=== PATIENT | female | born 1980 | race Caucasian/White ===

== ENCOUNTER 2017-02-26 21:13 | Emergency (ER) | payer MEDICAID ==
[~2017-02-26] VITALS: Ht 167.6 cm; Wt 70.2 kg
[~2017-02-26 21:13] MED LIST: AMOX500T PO
[2017-02-26 21:20] VITALS: BP 137/87; PULSE 96; RESP 18; TEMP 97.6; O2SAT 98
--- NOTE | 2017-02-26 21:34 | PD ---
HPI Chief Complaint: Oral / Dental Pain or Problem Time Seen by Provider: 21:33 Travel History International Travel<30 days: No Contact w/Intl Traveler<30days: No Traveled to known affect area: No History of Present Illness HPI 36-year-old female presents the emergency department visit. Right upper and lower dental pain and swelling for the past 3 days. Teeth involvement of the #3 and #30 tooth with localized swelling and tenderness of the gumline. Patient has pain with hot and cold and is unable to eat secondary to her dental pain. She denies sore throat or difficulty swallowing. She has no history of fever or chills. Pain is a 10 over 10. Patient is 37 weeks . She has no known drug allergies. [facility] Past Medical History Diminished Hearing: No Immunizations Current: Yes ?: : 12 Para: 4 Miscarriage: 2 : 8 Dilation and Curettage (D&C): Yes (D&C WITH ABORTIONS ) Past Surgical History Gynecologic Surgery: Yes (D&C) Other Surgery: Yes Social History Alcohol Use: No (quit) Tobacco Use: Yes (1-1.5 PPD) Substance Use: Yes (MARIJUANA) Allergies-Medications (Allergen,Severity, Reaction): Coded Allergies: No Known Allergies (Verified , 02/26/17) Reported Meds & Prescriptions Reported Meds & Active Scripts Active Magic Mouthwash Adult Liq (Multi-Ingredient Mouthwash/Gargle) 120 Ml Susp 10 Ml SWISH-SPIT ACHS Each 5 mL contains: Nystatin 200,000 units, Diphenhydramine 4.25 mg, Viscous Lidocaine 10 mg, Fonseca syrup 0.8 mL Amoxicillin 875 Mg Tab 875 Mg PO BID Acetaminophen Extra Strength (Acetaminophen) 500 Mg Cap 1,000 Mg PO Q6H PRN Review of Systems General / Constitutional: Positive: Chills, No: Fever Eyes: No: Visual changes HENT: Positive: Dental Difficulties, No: Headaches, Sore Throat, Rhinitis, Rhinorrhea, Congestion, Nosebleed, Neck Stiffness, Neck Pain, Ear Discharge, Earache Cardiovascular: No: Chest Pain or Discomfort Respiratory: No: Shortness of Breath Gastrointestinal: No: Abdominal Pain Genitourinary: No: Dysuria Musculoskeletal: No: Pain Skin: No Rash Neurologic: No: Weakness Psychiatric: No: Depression Endocrine: No: Polydipsia Hematologic/Lymphatic: No: Easy Bruising Physical Exam Narrative GENERAL: Patient is in moderate distress. SKIN: Warm and dry. Normal color. Normal turgor HEAD: Atraumatic. Normocephalic. Mild swelling to the right upper and lower jaw with tenderness. No erythema. EYES: Pupils equal and round. No scleral icterus. No injection or drainage. ENT: No nasal bleeding or discharge. Mucous membranes pink and moist. Poor dental condition. Obvious caries with tenderness consistent with patient's complaint. No significant drainable abscess. No signs Wilbert angina. NECK: Trachea midline. Supple nontender without significant lymphadenopathy. CARDIOVASCULAR: Regular rate and rhythm. RESPIRATORY: No accessory muscle use. Clear to auscultation. Breath sounds equal bilaterally. GASTROINTESTINAL: Abdomen soft, non-tender, nondistended. Hepatic and splenic margins not palpable. Gravid uterus noted. MUSCULOSKELETAL: Extremities without clubbing, cyanosis, or edema. No obvious deformities. NEUROLOGICAL: Awake and alert. No obvious cranial nerve deficits. Motor grossly within normal limits. Five out of 5 muscle strength in the arms and legs. Normal speech. PSYCHIATRIC: Appropriate mood and affect; insight and judgment normal. Data Data Last Documented VS Vital Signs Date Time Temp Pulse Resp B/P Pulse Ox O2 Delivery O2 Flow Rate FiO2 02/26/17 21:20 97.6 96 18 137/87 98 Orders Acetamin-Hydrocod 325-5 Mg ([place] 5-325 (02/26/17 21:45) Jux-Iizm-Dp-Mg-Simeth Liq (Magic Mouthwa (02/26/17 21:45) Amoxicillin (Trimox) (02/26/17 21:45) [facility] Medical Decision Making Medical Screen Exam Complete: Yes Emergency Medical Condition: Yes Differential Diagnosis Dental caries. Dental pain. . Narrative Course Patient is medically stable at time of exam. Patient is given 875 mg of amoxicillin by mouth now as well as Lortab 5/325 by mouth and Magic mouthwash 10 mL swish and spit. Patient be discharged home with amoxicillin 875 twice a day 10 days. Patient is given a prescription for Magic mouthwash as directed. Diagnosis Primary Impression: Dental abscess Referrals: Dentist Patient Instructions: Dental Abscess (ED), General Instructions Additional Instructions: Patient be discharged home with amoxicillin 875 twice a day 10 days. Patient is given a prescription for Magic mouthwash as directed. Med/Other Pt SpecificInfo: Prescription(s) given Scripts Vaxzneoj-Dyimytklqsjioxv-Pqofktpve Liq (Magic Mouthwash Adult Liq)120 Ml Susp10 Ml SWISH-SPIT ACHS #120 ML Ref 1 Each 5 mL contains: Nystatin 200,000 units, Diphenhydramine 4.25 mg, Viscous Lidocaine 10 mg, Fonseca syrup 0.8 mL Prov:Carlos Choe MD 02/26/17 Amoxicillin 875 Mg Unr548 Mg PO BID #20 TAB Prov:Carlos Choe MD 02/26/17 Acetaminophen (Acetaminophen Extra Strength)500 Mg Cap1,000 Mg PO Q6H PRN (PAIN SCALE 4 TO 10) #60 CAP Ref 1 Prov:Carlos Choe MD 02/26/17 Disposition: 01 DISCHARGE HOME Condition: Stable Wenceslao Leiva Feb 26, 2017 21:34
[2017-02-26] MEDS ORDERED: EXTR500C PO (21:41)
[2017-02-26] MEDS ORDERED: AMOX875T PO (21:41)
[2017-02-26] MEDS ORDERED: MAGICADU2 SWISH-SPIT (21:41)
[2017-02-26] MEDS ORDERED: DIPHENHY/LIDO/MAG/ALUM MOUTHWASH (Adult/Peds) 60 ML BTL SWISH-SPIT ONE (21:45)
[2017-02-26] MEDS ORDERED: AMOXICILLIN 875 MG TAB PO ONE (21:45)
[2017-02-26] MEDS ORDERED: ACETAMINOPHEN/HYDROcodone 325 MG/5 MG TAB PO ONE (21:45)
== END 2017-02-26 22:15 | disposition home or self-care (01) ==
LOC: PHEFT 21:13
DX: K04.7 Periapical abscess without sinus (principal)
CPT/HCPCS: 99282

== ENCOUNTER 2017-05-11 20:19 | Emergency (ER) | payer MEDICAID ==
[~2017-05-11] VITALS: Ht 167.6 cm; Wt 68.3 kg
[~2017-05-11 20:19] MED LIST changes: -AMOX500T PO; +AMOX875T PO; +EXTR500C PO; +MAGICADU2 SWISH-SPIT
[2017-05-11 20:32] VITALS: BP 129/84; PULSE 94; RESP 18; TEMP 98.5; O2SAT 97
[2017-05-11] MEDS ORDERED: PERI0.126 SWISH-SPIT (20:50)
[2017-05-11] MEDS ORDERED: IBUP800T23 PO (20:50)
[2017-05-11] MEDS ORDERED: PENI500T PO (20:50)
--- NOTE | 2017-05-11 20:58 | PD ---
HPI Chief Complaint: Oral / Dental Pain or Problem Time Seen by Provider: 20:40 Travel History International Travel<30 days: No Contact w/Intl Traveler<30days: No Traveled to known affect area: No History of Present Illness HPI 37-year-old female presents to the emergency room for evaluation of right, back lower dental pain and swelling for the past week. Patient states she has an appointment with her dentist even 3 days but could not take the pain anymore and was concerned for infection. States while eating a lollipop today, she broke her front tooth which exacerbated her back tooth pain. Pain is constant, sharp. She has been taking Tylenol and Motrin with jbqq-yh-otfecqaz relief in symptoms. She denies fever, chills, nausea, and vomiting. PFSH Past Medical History Diminished Hearing: No Immunizations Current: Yes ?: Not : 12 Para: 4 Miscarriage: 2 : 8 Dilation and Curettage (D&C): Yes (D&C WITH ABORTIONS ) Past Surgical History Appendectomy: Yes Gynecologic Surgery: Yes (D&C) Other Surgery: Yes Social History Alcohol Use: No (quit) Tobacco Use: Yes (1-1.5 PPD) Substance Use: Yes (MARIJUANA) Allergies-Medications (Allergen,Severity, Reaction): Coded Allergies: No Known Allergies (Verified , 05/11/17) Reported Meds & Prescriptions Reported Meds & Active Scripts Active Ibuprofen 800 Mg Tab 800 Mg PO Q8H PRN Peridex Liq (Chlorhexidine Gluconate (Mouth) Liq) 0.12% Soln 15 Ml SWISH-SPIT BID Penicillin V Potassium 500 Mg Tab 500 Mg PO Q6H 10 Days Review of Systems Except as stated in HPI: all other systems reviewed are Neg Physical Exam Narrative GENERAL: Well-nourished, well-developed female in no acute distress. Afebrile. Ambulatory. SKIN: Focused skin assessment warm/dry. HEAD: Normocephalic. EYES: No scleral icterus. No injection or drainage. DENTAL: No malocclusion. Moderate to severe decay throughout. Tooth #32 is rotted with exposed root. No surrounding erythema or drainage.. Mild buccal edema. No submental, submandibular, or buccal induration. NECK: Supple, trachea midline. No JVD or lymphadenopathy. CARDIOVASCULAR: Regular rate and rhythm without murmurs, gallops, or rubs. RESPIRATORY: Breath sounds equal bilaterally. No accessory muscle use. Data Data Last Documented VS Vital Signs Date Time Temp Pulse Resp B/P Pulse Ox O2 Delivery O2 Flow Rate FiO2 05/11/17 20:32 98.5 94 18 129/84 97 MDM Medical Decision Making Medical Screen Exam Complete: Yes Emergency Medical Condition: Yes Medical Record Reviewed: Yes Differential Diagnosis Tooth pain, dental abscess, gingivitis, decayed Narrative Course 37-year-old female presents to the emergency room for evaluation of dental pain for the past week that worsened today. Patient has an appointment with her dentist in 3 days. No systemic signs of infection. Vital signs stable. Physical exam reveals extreme decay of tooth #32 with exposed root. No obvious abscess. Patient will be discharged with prescriptions for ibuprofen, Peridex, and penicillin. Told to follow-up with a primary care physician or return for worsening symptoms. She understands and agrees to plan. Diagnosis Primary Impression: Odontalgia Referrals: Dentist Patient Instructions: General Instructions, Toothache (ED) Additional Instructions: Rest and drink plenty of fluids. Penicillin as directed, until gone. Peridex as directed. Ibuprofen with food as directed, as needed for pain. Follow-up with a dentist. Return to the emergency room for worsening symptoms. Med/Other Pt SpecificInfo: Prescription(s) given Scripts Ibuprofen 800 Mg Bqp120 Mg PO Q8H PRN (Pain/Inflammation) #21 TAB Ref 0 Prov:Carlos Choe MD 05/11/17 Chlorhexidine Gluconate (Mouth) Liq (Peridex Liq)0.12% Soln15 Ml SWISH-SPIT BID #473 ML Ref 0 Prov:Carlos Choe MD 05/11/17 Penicillin V Potassium 500 Mg [id number] Mg PO Q6H 10 Days Ref 0 Prov:Carlos Choe MD 05/11/17 Disposition: 01 DISCHARGE HOME Condition: Stable Sheryl Lee May 11, 2017 20:58
== END 2017-05-11 21:43 | disposition home or self-care (01) ==
LOC: PHEFT 20:19
DX: K08.89 Other specified disorders of teeth and supporting structures (principal); F17.200 Nicotine dependence, unspecified, uncomplicated
CPT/HCPCS: 99283

== ENCOUNTER 2017-05-25 17:45 | Emergency (ER) | payer MEDICAID ==
[~2017-05-25] VITALS: Ht 167.6 cm; Wt 66.7 kg
[~2017-05-25 17:45] MED LIST changes: -AMOX875T PO; -EXTR500C PO; +IBUP800T23 PO; -MAGICADU2 SWISH-SPIT; +PENI500T PO; +PERI0.126 SWISH-SPIT
[2017-05-25 17:50] VITALS: BP 135/91; PULSE 85; RESP 15; TEMP 98.2; O2SAT 97
[2017-05-25] MEDS ORDERED: CLIN1CAP6 PO (19:01)
--- NOTE | 2017-05-25 19:12 | PD ---
HPI Chief Complaint: Oral / Dental Pain or Problem Time Seen by Provider: 18:30 Travel History International Travel<30 days: No Contact w/Intl Traveler<30days: No Traveled to known affect area: No History of Present Illness HPI 37-year-old female presents to the emergency room for evaluation of right lower dental pain for the past several weeks. She came to the emergency room 2 weeks ago and was given prescriptions for Peridex oral rinse and penicillin. States she has been taking the penicillin but it does not seem to be improving her symptoms. Patient was prescribed 10 days worth 2 weeks ago and still has several pills left. She followed up with her dentist a few days after coming to the emergency room who prescribed her Flagyl and told her to follow up with an oral surgeon. Patient was told by the pharmacy that she cannot take Flagyl because she is breast-feeding. She has not taken any doses of Flagyl at this time. She reports a fever of 102 last night. Patient has been taking 800 mg ibuprofen every 8 hours for pain and states it is not helping at all. She has also tried topical treatments without any relief. Pain is so severe it is keeping her up at night preventing her from being able to eat. PFSH Past Medical History Diminished Hearing: No Immunizations Current: Yes ?: Not : 12 Para: 4 Miscarriage: 2 : 8 Dilation and Curettage (D&C): Yes (D&C WITH ABORTIONS ) Past Surgical History Appendectomy: Yes Gynecologic Surgery: Yes (D&C) Other Surgery: Yes Social History Alcohol Use: No (quit) Tobacco Use: Yes (1-1.5 PPD) Substance Use: Yes (MARIJUANA) Allergies-Medications (Allergen,Severity, Reaction): Coded Allergies: No Known Allergies (Verified , 05/25/17) Reported Meds & Prescriptions Reported Meds & Active Scripts Active Magic Mouthwash Pediatric/Adult Liq (Lidocaine/Diphenhydr/Alum/Mg/Simeth) 60 Ml Susp 5 Ml SWISH-SWAL ACHS Each 5mL contains: Diphenydramine 4.5mg, Viscous Lidocaine 2% 10mg, Maalox Advanced Regular Strength 2.7ml Ibuprofen 600 Mg Tab 600 Mg PO Q8H PRN Clindamycin (Clindamycin HCl) 300 Mg Cap 300 Mg PO Q6H 10 Days Ibuprofen 800 Mg Tab 800 Mg PO Q8H PRN Penicillin V Potassium 500 Mg Tab 500 Mg PO Q6H 10 Days Review of Systems Except as stated in HPI: all other systems reviewed are Neg Physical Exam Narrative GENERAL: Well-nourished, well-developed female in no acute dry. Afebrile. Ambulatory. SKIN: Focused skin assessment warm/dry. HEAD: Normocephalic. EYES: No scleral icterus. No injection or drainage. DENTAL: Mild decay throughout. Multiple cavities. No loose or chipped teeth. No malocclusion. There is an obvious abscess under tooth #32 which has a large cavity in it. NECK: Supple, trachea midline. No JVD or lymphadenopathy. CARDIOVASCULAR: Regular rate and rhythm without murmurs, gallops, or rubs. RESPIRATORY: Breath sounds equal bilaterally. No accessory muscle use. Data Data Last Documented VS Vital Signs Date Time Temp Pulse Resp B/P Pulse Ox O2 Delivery O2 Flow Rate FiO2 05/25/17 17:50 98.2 85 15 135/91 97 Orders Ketorolac Inj (Toradol Inj) (05/25/17 19:30) [facility] Medical Decision Making Medical Screen Exam Complete: Yes Emergency Medical Condition: Yes Medical Record Reviewed: Yes Differential Diagnosis Dental abscess, dentalgia, gingivitis Narrative Course 37-year-old female presents to the emergency room for evaluation of dental pain for the past 2 weeks. She was seen here 2 weeks ago and prescribed penicillin. She was given 10 days worth and still has a few days left; patient is not taking medication as prescribed. She followed-up with a dentist who prescribed her Flagyl but was unable to take it because it passes through breastmilk. States she is in severe pain. Patient was told that she can have 1 dose of narcotic pain medication but should not feed her baby afterwards. She declined. She was offered injection of lidocaine but was noncooperative. She requested Toradol but left before he could be administered. Patient was discharged with clindamycin, Magic mouthwash, and prescription strength ibuprofen. She was told not to take ibuprofen more than prescribed. Told to follow-up with the oral surgeon as instructed or return for worsening symptoms. She understands and agrees to plan. Procedures Procedure Narrative Tooth block: The area was prepped and was sterilely draped. A subcutaneous wheal of 1% lidocaine with a total number 0.5 mL was used to anesthetize the area properly. An 18-gauge needle was injected into the area of the abscess with purulent drainage. The abscess was drained. Patient was noncooperative and pulled back every time injection was attempted. Diagnosis Primary Impression: Dental abscess Referrals: Dentist Patient Instructions: Dental Abscess (ED), General Instructions Additional Instructions: Rest and drink plenty of fluids. [address] your teeth twice daily. Clindamycin as directed, until gone. Follow-up with a dentist. Return to the emergency room for worsening symptoms. Med/Other Pt SpecificInfo: Prescription(s) given Scripts Qywyyegmobwpyhp-Tmtguplwb-Zqa-Alum-Simeth Liq (Magic Mouthwash Pediatric/Adult Liq)60 Ml Susp5 Ml SWISH-SWAL ACHS #60 ML Ref 0 Each 5mL contains: Diphenydramine 4.5mg, Viscous Lidocaine 2% 10mg, Maalox Advanced Regular Strength 2.7ml Prov:Spencer Field MD 05/25/17 Ibuprofen 600 Mg Kwk451 Mg PO Q8H PRN (PAIN) #21 TAB Ref 0 Prov:Spencer Field MD 05/25/17 Clindamycin 300 Mg Mem265 Mg PO Q6H 10 Days Ref 0 Prov:Spencer Field MD 05/25/17 Disposition: 01 DISCHARGE HOME Condition: Stable Sheryl Lee May 25, 2017 19:12
[2017-05-25] MEDS ORDERED: MAGICPED SWISH-SWAL (19:16)
[2017-05-25] MEDS ORDERED: IBUP-232 PO (19:16)
[2017-05-25] MEDS ORDERED: KETOROLAC TROMETHAMINE 60 MG/2 ML (IM) VIAL IM ONE (19:30)
== END 2017-05-25 19:48 | disposition home or self-care (01) ==
LOC: PHEFT 17:45
DX: K04.7 Periapical abscess without sinus (principal); F17.210 Nicotine dependence, cigarettes, uncomplicated
CPT/HCPCS: 64400

== ENCOUNTER 2017-06-22 13:21 | Emergency (ER) | payer MEDICAID ==
[~2017-06-22] VITALS: Ht 167.6 cm; Wt 65.6 kg
[~2017-06-22 13:21] MED LIST changes: +CLIN1CAP6 PO; +IBUP-232 PO; +MAGICPED SWISH-SWAL; -PERI0.126 SWISH-SPIT
[2017-06-22 13:44] VITALS: BP 131/79; PULSE 108; RESP 16; TEMP 98.3; O2SAT 98
[2017-06-22] MEDS ORDERED: PROC2.5C RECTAL (14:05)
--- NOTE | 2017-06-22 14:06 | PD ---
HPI Chief Complaint: GI Complaint Time Seen by Provider: 13:57 Travel History International Travel<30 days: No Contact w/Intl Traveler<30days: No Traveled to known affect area: No History of Present Illness HPI 37-year-old female presents with hemorrhoid pain 3 days. Patient reports pain at the site of the hemorrhoid. She denies rectal bleeding. Pain is unrelieved with szxn-qub-gcsdoci Preparation H. She denies fevers, chills, abdominal pain , bleeding from the rectum. Symptoms severity moderate. PFSH Past Medical History Medical History: Denies Significant Hx Diminished Hearing: No Immunizations Current: Yes Tetanus Vaccination: < 5 Years Influenza Vaccination: No ?: Not LMP: 2 months late, post : 12 Para: 4 Miscarriage: 2 : 8 Dilation and Curettage (D&C): Yes (D&C WITH ABORTIONS ) Past Surgical History Appendectomy: Yes Gynecologic Surgery: Yes (D&C) Oral Surgery: Yes Other Surgery: Yes Social History Alcohol Use: No (quit) Tobacco Use: Yes (1-1.5 PPD) Substance Use: Yes (MARIJUANA) Allergies-Medications (Allergen,Severity, Reaction): Coded Allergies: No Known Allergies (Verified , 06/22/17) Reported Meds & Prescriptions Reported Meds & Active Scripts Active Proctosol Hc 2.5% (Hydrocortisone Rectal 2.5%) 2.5% Cream 1 Applic RECTAL Q4H PRN Review of Systems Except as stated in HPI: all other systems reviewed are Neg General / Constitutional: No: Fever Eyes: No: Visual changes HENT: No: Headaches Cardiovascular: No: Chest Pain or Discomfort Respiratory: No: Shortness of Breath Gastrointestinal: No: Abdominal Pain Genitourinary: No: Dysuria Physical Exam Narrative GENERAL: Well-nourished, well-developed patient. SKIN: Focused skin assessment warm/dry. HEAD: Normocephalic. EYES: No scleral icterus. No injection or drainage. NECK: Supple, trachea midline. No JVD or lymphadenopathy. CARDIOVASCULAR: Regular rate and rhythm without murmurs, gallops, or rubs. RESPIRATORY: Breath sounds equal bilaterally. No accessory muscle use. GASTROINTESTINAL: Abdomen soft, non-tender, nondistended. Rectal exam: Single Inflamed external hemorrhoid. The area is not thrombosed. No bleeding. MUSCULOSKELETAL: No cyanosis, or edema. BACK: Nontender without obvious deformity. No CVA tenderness. Data Data Last Documented VS Vital Signs Date Time Temp Pulse Resp B/P Pulse Ox O2 Delivery O2 Flow Rate FiO2 06/22/17 13:44 98.3 108 16 131/79 98 MDM Medical Decision Making Medical Screen Exam Complete: Yes Emergency Medical Condition: Yes Differential Diagnosis External hemorrhoid, internal hemorrhoid, rectal abscess, other Narrative Course 37-year-old female with chief complaint of painful hemorrhoids 3 days. Patient 's physical exam is reassuring. She has a single external inflamed hemorrhoid. She will be prescribed Proctofoam, instructed to take stool softeners, sitz baths and follow up PCP. She agrees to treatment plan verbalizes understanding. Diagnosis Primary Impression: Hemorrhoid Qualified Code: K64.9 - Hemorrhoids, unspecified hemorrhoid type Referrals: Primary Care Physician Scripts Hydrocortisone Rectal 2.5% (Proctosol Hc 2.5%)2.5% Cream1 Applic RECTAL Q4H PRN (PAIN/INFLAMMATION) #1 TUBE Ref 0 Prov:Barbie Vee 06/22/17 Disposition: 01 DISCHARGE HOME Condition: Stable Barbie Vee Jun 22, 2017 14:05
[2017-06-22] MEDS ORDERED: KETOROLAC TROMETHAMINE 60 MG/2 ML (IM) VIAL IM ONE (14:15)
== END 2017-06-22 14:26 | disposition home or self-care (01) ==
LOC: PHEFT 13:21
DX: K64.9 Unspecified hemorrhoids (principal); F17.200 Nicotine dependence, unspecified, uncomplicated
CPT/HCPCS: 96372; 99284; J1885

== ENCOUNTER 2017-09-03 07:41 | Emergency (ER) | payer MEDICAID ==
[~2017-09-03] VITALS: Ht 167.6 cm; Wt 72.0 kg
[~2017-09-03 07:41] MED LIST changes: -CLIN1CAP6 PO; -IBUP-232 PO; -IBUP800T23 PO; -MAGICPED SWISH-SWAL; -PENI500T PO; +PROC2.5C RECTAL
[2017-09-03 07:43] VITALS: BP 119/70; PULSE 78; RESP 18; TEMP 97.7; O2SAT 96
[2017-09-03] MEDS ORDERED: PENICILLIN V POTASSIUM 500 MG TAB PO ONE (08:00)
[2017-09-03] MEDS ORDERED: IBUPROFEN 600 MG TAB PO ONE (08:00)
[2017-09-03] MEDS ORDERED: IBUP-232 PO (08:04)
[2017-09-03] MEDS ORDERED: PENI500T PO (08:04)
--- NOTE | 2017-09-03 08:05 | PD ---
HPI Chief Complaint: Oral / Dental Pain or Problem Time Seen by Provider: 07:57 Travel History International Travel<30 days: No Contact w/Intl Traveler<30days: No Traveled to known affect area: No History of Present Illness HPI Patient is a 37-year-old female who presents to emergency room with complaints of pains to her bottom left molar. Patient reports that she has history of " bad teeth" at baseline and recently had 6 teeth pulled. Patient reports that she has one more tooth that needs to be pulled. She has been having moderate pain to the back left molar. Patient with no fevers or chills. She does have a dentist appointment coming up soon. Patient with no other complaints at this time. [facility] Past Medical History Diminished Hearing: No Immunizations Current: Yes ?: Not : 12 Para: 4 Miscarriage: 2 : 8 Dilation and Curettage (D&C): Yes (D&C WITH ABORTIONS ) Past Surgical History Appendectomy: Yes Gynecologic Surgery: Yes (D&C) Oral Surgery: Yes Other Surgery: Yes Social History Alcohol Use: No (quit) Tobacco Use: Yes (1-1.5 PPD) Substance Use: Yes (MARIJUANA) Allergies-Medications (Allergen,Severity, Reaction): Coded Allergies: No Known Allergies (Verified , 06/22/17) Reported Meds & Prescriptions Reported Meds & Active Scripts Active Review of Systems General / Constitutional: No: Fever Eyes: No: Visual changes HENT: Positive: Dental Difficulties, No: Headaches Cardiovascular: No: Chest Pain or Discomfort Respiratory: No: Shortness of Breath Gastrointestinal: No: Abdominal Pain Genitourinary: No: Dysuria Musculoskeletal: No: Pain Skin: No Rash Neurologic: No: Weakness Psychiatric: No: Depression Endocrine: No: Polydipsia Hematologic/Lymphatic: No: Easy Bruising Physical Exam Narrative GENERAL: Well-nourished, well-developed patient. SKIN: Focused skin assessment warm/dry. HEAD: Normocephalic. EYES: No scleral icterus. No injection or drainage. Patient with poor dentition. Patient with no obvious drainage or swelling, posterior pharynx is open and patent with no swelling. Patient with no trismus. NECK: Supple, trachea midline. No JVD or lymphadenopathy. CARDIOVASCULAR: Regular rate and rhythm without murmurs, gallops, or rubs. RESPIRATORY: Breath sounds equal bilaterally. No accessory muscle use. GASTROINTESTINAL: Abdomen soft, non-tender, nondistended. MUSCULOSKELETAL: No cyanosis, or edema. BACK: Nontender without obvious deformity. No CVA tenderness. Data Data Last Documented VS Vital Signs Date Time Temp Pulse Resp B/P (MAP) Pulse Ox O2 Delivery O2 Flow Rate FiO2 09/03/17 07:43 97.7 78 18 119/70 (86) 96 Room Air Orders Orders Ibuprofen (Motrin) (09/03/17 08:00) Penicillin V Potassium (Veetids) (09/03/17 08:00) MDM Medical Decision Making Medical Screen Exam Complete: Yes Emergency Medical Condition: Yes Medical Record Reviewed: Yes Interpretation(s) Vital Signs Date Time Temp Pulse Resp B/P (MAP) Pulse Ox O2 Delivery O2 Flow Rate FiO2 09/03/17 07:43 97.7 78 18 119/70 (86) 96 Room Air Differential Diagnosis Differential includes dental infection, dental abscess, dental pain Narrative Course Patient with 4 days of left-sided lower molar dental pain with history of dental difficulties. Vital signs are stable, patient appears to have a possible dental infection to the left lower molar which patient is aware that her tooth needs to be removed. She does have an appointment with her dentist coming up, patient here for pain relief. Patient with possible dental infection , will start patient on penicillin. Signs and symptoms of when to return to the emergency room was reviewed with patient in detail. Diagnosis Primary Impression: Pain, dental Additional Instructions: Please follow up with your dentist Take all antibiotics as prescribed Return to ER as needed Return to ER if symptoms worsen of persist Med/Other Pt SpecificInfo: Prescription(s) given Scripts Ibuprofen (Ibuprofen) 600 Mg Tab 600 MG PO Q6H Y for Pain/Inflammation, #40 TAB 0 Refills Prov: Lauren Yoon DO 09/03/17 Penicillin V Potassium (Penicillin V Potassium) 500 Mg Tab 500 MG PO Q6H for Infection for 10 Days, #40 TAB 0 Refills Prov: Lauren Yoon DO 09/03/17 Disposition: 01 DISCHARGE HOME Condition: Stable Lauren Yoon DO Sep 03, 2017 08:05
== END 2017-09-03 08:20 | disposition home or self-care (01) ==
LOC: PHED 07:41
DX: K08.89 Other specified disorders of teeth and supporting structures (principal); F17.200 Nicotine dependence, unspecified, uncomplicated
CPT/HCPCS: 99283

== ENCOUNTER 2017-09-06 08:00 | Emergency (ER) | payer MEDICAID ==
[~2017-09-06] VITALS: Ht 167.6 cm; Wt 72.0 kg
[~2017-09-06 08:00] MED LIST changes: +IBUP-232 PO; +PENI500T PO; -PROC2.5C RECTAL
[2017-09-06 08:05] VITALS: BP 148/89; PULSE 83; RESP 16; TEMP 97.5; O2SAT 97
[2017-09-06] MEDS ORDERED: CLIN1CAP6 PO (08:25)
[2017-09-06] MEDS ORDERED: IBUP800T23 PO (08:25)
--- NOTE | 2017-09-06 08:25 | PD ---
HPI Chief Complaint: Oral / Dental Pain or Problem Time Seen by Provider: 08:14 Travel History International Travel<30 days: No Contact w/Intl Traveler<30days: No Traveled to known affect area: No History of Present Illness HPI This 37-year-old female is complaining of pain in the left side of her jaw. She has had recurrent dental abscesses. She has recently had 6 teeth removed but she has carious tooth at the site of her pain that was not removed. He was here on the 16 and was started on penicillin. Penicillin is not relieved the pain is severe. She is also taking ibuprofen for pain. She is breast-feeding [facility] Past Medical History Diminished Hearing: No Immunizations Current: Yes ?: Not : 12 Para: 4 Miscarriage: 2 : 8 Dilation and Curettage (D&C): Yes (D&C WITH ABORTIONS ) Past Surgical History Appendectomy: Yes Gynecologic Surgery: Yes (D&C) Oral Surgery: Yes Other Surgery: Yes Social History Alcohol Use: No (quit) Tobacco Use: Yes (1-1.5 PPD) Substance Use: Yes (MARIJUANA) Allergies-Medications (Allergen,Severity, Reaction): Coded Allergies: No Known Allergies (Verified , 09/06/17) Reported Meds & Prescriptions Reported Meds & Active Scripts Active Ibuprofen 600 Mg Tab 600 Mg PO Q6H PRN Penicillin V Potassium 500 Mg Tab 500 Mg PO Q6H 10 Days Review of Systems General / Constitutional: No: Fever, Chills Eyes: No: Diploplia HENT: Positive: Dental Difficulties Cardiovascular: No: Chest Pain or Discomfort, Palpitations Respiratory: No: Cough, Shortness of Breath Gastrointestinal: No: Vomiting, Diarrhea Genitourinary: No: Urgency Endocrine: No: Heat Intolerance, Cold Intolerance Hematologic/Lymphatic: No: Easy Bruising Physical Exam Narrative GENERAL: Well-developed female SKIN: Focused skin assessment warm/dry. HEAD: Atraumatic. Normocephalic. EYES: Pupils equal and round. No scleral icterus. No injection or drainage. ENT: No nasal bleeding or discharge. Mucous membranes pink and moist. There is swelling of the left side, there is a very carious first molar NECK: Trachea midline. No JVD. MUSCULOSKELETAL: No obvious deformities. No clubbing. No cyanosis. No edema. NEUROLOGICAL: Awake and alert. No obvious cranial nerve deficits. Motor grossly within normal limits. Normal speech. PSYCHIATRIC: Appropriate mood and affect; insight and judgment normal. Data Data Last Documented VS Vital Signs Date Time Temp Pulse Resp B/P (MAP) Pulse Ox O2 Delivery O2 Flow Rate FiO2 09/06/17 08:05 97.5 83 16 148/89 (108) 97 MDM Medical Decision Making Medical Screen Exam Complete: Yes Emergency Medical Condition: Yes Medical Record Reviewed: Yes Differential Diagnosis Differential dental abscess, dental caries Narrative Course Patient has a small abscess which has not responded to penicillin. Clindamycin will be substituted Diagnosis Primary Impression: Dental abscess Scripts Ibuprofen (Ibuprofen) 800 Mg Tab 800 MG PO Q8H Y for PAIN 1 TO 10 AND/OR AGITATION, #20 TAB 0 Refills Prov: Carlos Choe MD 09/06/17 Clindamycin (Clindamycin) 300 Mg Cap 300 MG PO Q6H for Infection for 10 Days, #40 CAP 0 Refills Prov: Carlos Choe MD 09/06/17 Disposition: 01 DISCHARGE HOME Condition: Stable Carlos Choe MD Sep 06, 2017 08:25
== END 2017-09-06 08:31 | disposition home or self-care (01) ==
LOC: PHED 08:00
DX: K04.7 Periapical abscess without sinus (principal); F17.200 Nicotine dependence, unspecified, uncomplicated
CPT/HCPCS: 99283

== ENCOUNTER 2017-10-03 07:45 | Emergency (ER) | payer MEDICAID ==
[~2017-10-03] VITALS: Ht 167.6 cm; Wt 72.0 kg
[~2017-10-03 07:45] MED LIST changes: +CLIN300C5 PO; +IBUP1TAB7 PO
[2017-10-03 07:59] VITALS: BP 122/82; PULSE 108; RESP 16; TEMP 98.3; O2SAT 96
[2017-10-03] MEDS ORDERED: DEXT10SY2 PO (08:26)
[2017-10-03] MEDS ORDERED: ALBUAER3 INH (08:26)
[2017-10-03] MEDS ORDERED: PRED20 PO (08:26)
--- NOTE | 2017-10-03 08:27 | PD ---
HPI Chief Complaint: Cold / Flu Symptoms Time Seen by Provider: 08:08 Travel History International Travel<30 days: No Contact w/Intl Traveler<30days: No Traveled to known affect area: No History of Present Illness HPI This is a 37-year-old female who presents to the emergency department with cough for 2 weeks, constant, moderate severity productive with green sputum, associated with subjective fevers and chills, rhinorrhea and congestion. She says she vomited yesterday. She does smoke cigarettes. Her daughter is also been sick with similar symptoms. She denies any diarrhea. [facility] Past Medical History Medical History: Denies Significant Hx Diminished Hearing: No Immunizations Current: Yes Influenza Vaccination: No ?: Not LMP: 2 WKS : 12 Para: 4 Miscarriage: 2 : 8 Dilation and Curettage (D&C): Yes (D&C WITH ABORTIONS ) Past Surgical History Appendectomy: Yes Gynecologic Surgery: Yes (D&C) Oral Surgery: Yes Other Surgery: Yes Social History Alcohol Use: No (quit) Tobacco Use: Yes (1-1.5 PPD) Substance Use: Yes (MARIJUANA) Allergies-Medications (Allergen,Severity, Reaction): Coded Allergies: No Known Allergies (Verified Adverse Reaction, Unknown, 10/03/17) Reported Meds & Prescriptions Reported Meds & Active Scripts Active Azithromycin 250 Mg Tab 250 Mg PO DIRECTED Take 2 tabs (500 mg) on day 1 then 1 tab daily x 4 days. Dextromethorphan/Guaifene 10-100 mg/5Ml (Dextromethorphan-Guaifenesin) 100 Mg- 10 Mg/5 Ml Syp 5-10 Ml PO Q4-6H PRN Prednisone 20 Mg Tab 40 Mg PO DAILY 5 Days Take 40 mg (2 tablets) daily for 5 days Proair Hfa 8.5 GM Inh (Albuterol Sulfate) 90 Mcg/Act Aer 2 Puff INH Q4-6H PRN 108 mcg/actuation Review of Systems Except as stated in HPI: all other systems reviewed are Neg Physical Exam Narrative GENERAL:Well appearing, no acute distress SKIN: Focused skin assessment warm and dry. HEAD: Atraumatic. Normocephalic. EYES: Pupils equal and round. No injection or drainage. ENT: Nasal congestion. Mild posterior pharyngeal erythema with no exudates. NECK: Trachea midline. CARDIOVASCULAR: Regular rate and rhythm. No murmur appreciated. RESPIRATORY: Diffuse wheezing, normal work of breathing, no accessory muscle use , speaking full sentences GASTROINTESTINAL: Abdomen soft, non-tender, nondistended. MUSCULOSKELETAL: No obvious deformities. NEUROLOGICAL: Awake and alert. No obvious cranial nerve deficits. Moving all extremities. PSYCHIATRIC: Appropriate mood and affect; insight and judgment normal. Data Data Last Documented VS Vital Signs Date Time Temp Pulse Resp B/P (MAP) Pulse Ox O2 Delivery O2 Flow Rate FiO2 10/03/17 08:10 18 96 Room Air 10/03/17 07:59 98.3 108 122/82 (95) Orders Orders Ed Discharge Order (10/03/17 08:27) MDM Medical Decision Making Medical Screen Exam Complete: Yes Emergency Medical Condition: Yes Differential Diagnosis Bronchitis, pneumonia, viral syndrome Narrative Course This is a 37-year-old female who presents to the emergency department with cough , nasal congestion and some subjective fevers and chills. She's wheezing on exam. She does smoke cigarettes. She's not hypoxic. I think she has bronchitis. She is still nursing. She was prescribed albuterol, prednisone which she was advised to take 4 hours prior to nursing, Robitussin, and she was given azithromycin but advised to pump and dump if she takes it. Patient will be discharged home. Diagnosis Primary Impression: Bronchitis Patient Instructions: General Instructions Additional Instructions: If you develop severe chest pain, shortness of breath, sweating, lightheadedness , dizziness or difficulty breathing return to the emergency department immediately. Followup with your primary care physician in 2-3 days if your symptoms are not resolved. Nurse 4 hours after taking prednisone Med/Other Pt SpecificInfo: Prescription(s) given Scripts Azithromycin (Azithromycin) 250 Mg Tab 250 MG PO DIRECTED for Infection, #6 TAB 0 Refills Take 2 tabs (500 mg) on day 1 then 1 tab daily x 4 days. Prov: Vesna Dubose MD 10/03/17 Dextromethorphan-Guaifenesin (Dextromethorphan/Guaifene 10-100 mg/5Ml) 100 Mg- 10 Mg/5 Ml Syp 5-10 ML PO Q4-6H Y for COUGH, #1 BOTTLE Prov: Vesna Dubose MD 10/03/17 Prednisone (Prednisone) 20 Mg Tab 40 MG PO DAILY for 5 Days, TAB 0 Refills Take 40 mg (2 tablets) daily for 5 days Prov: Vesna Dubose MD 10/03/17 Albuterol 8.5 GM Inh (Proair Hfa 8.5 GM Inh) 90 Mcg/Act Aer 2 PUFF INH Q4-6H Y for SHORTNESS OF BREATH, #1 INHALER 0 Refills 108 mcg/actuation Prov: Vesna Dubose MD 10/03/17 Disposition: 01 DISCHARGE HOME Condition: Stable Vesna Dubose MD Oct 03, 2017 08:27
[2017-10-03] MEDS ORDERED: AZIT250T3 PO (08:32)
== END 2017-10-03 08:51 | disposition home or self-care (01) ==
LOC: PHED 07:45
DX: J40 Bronchitis, not specified as acute or chronic (principal); F17.210 Nicotine dependence, cigarettes, uncomplicated
CPT/HCPCS: 99283

== ENCOUNTER 2017-12-03 06:07 | Emergency (ER) | payer MEDICAID ==
[~2017-12-03] VITALS: Ht 167.6 cm; Wt 74.2 kg
[~2017-12-03 06:07] MED LIST changes: +ALBUAER3 INH; +AZIT250T3 PO; -CLIN300C5 PO; +DEXT10SY2 PO; -IBUP-232 PO; -IBUP1TAB7 PO; -PENI500T PO; +PRED20 PO
[2017-12-03 06:12] VITALS: BP 147/82; PULSE 97; RESP 22; TEMP 98.5; O2SAT 96
[2017-12-03] MEDS ORDERED: IBUPROFEN 800 MG TAB PO ONE (07:15)
[2017-12-03] MEDS ORDERED: CLINDAMYCIN 150 MG CAP PO ONE (07:15)
[2017-12-03 07:30] VITALS: BP 144/76; PULSE 90; RESP 20; TEMP 98.7; O2SAT 97
[2017-12-03] MEDS ORDERED: CLIN300C5 PO (07:32)
--- NOTE | 2017-12-03 07:32 | PD ---
HPI Chief Complaint: Oral / Dental Pain or Problem Time Seen by Provider: 07:12 Travel History International Travel<30 days: No Contact w/Intl Traveler<30days: No Traveled to known affect area: No History of Present Illness HPI Patient is a 37 year old female who comes in complaining of tooth pain that started this morning at 4AM. She says she has had issues with this tooth in the past. She is requesting clindamycin. She says she has taken Ibuprofen and this has not helped. She is working with a dentist, and is trying to save the money to have the dental procedure she needs at this time. She denies any difficulty breathing or swallowing. Nothing seems to make her pain better. She is currently breast feeding. [facility] Past Medical History Diminished Hearing: No Immunizations Current: Yes Tetanus Vaccination: Unknown Influenza Vaccination: No ?: Not : 12 Para: 4 Miscarriage: 2 : 8 Dilation and Curettage (D&C): Yes (D&C WITH ABORTIONS ) Past Surgical History Appendectomy: Yes Gynecologic Surgery: Yes (D&C) Oral Surgery: Yes Other Surgery: Yes Social History Alcohol Use: No (quit) Tobacco Use: Yes (1-1.5 PPD) Substance Use: Yes (MARIJUANA) Allergies-Medications (Allergen,Severity, Reaction): Coded Allergies: No Known Allergies (Verified Adverse Reaction, Unknown, 12/03/17) Reported Meds & Prescriptions Reported Meds & Active Scripts Active No Active Prescriptions or Reported Medications Review of Systems General / Constitutional: No: Fever, Chills HENT: Positive: Dental Difficulties, No: Headaches, Lightheadedness Cardiovascular: No: Chest Pain or Discomfort Respiratory: No: Shortness of Breath Gastrointestinal: No: Nausea, Vomiting Genitourinary: No: Dysuria Musculoskeletal: No: Myalgias, Edema Skin: No Rash, No Change in Pigmentation Neurologic: No: Weakness, Dizziness, Syncope Physical Exam Narrative GENERAL: Awake and alert, in no acute distress. SKIN: Focused skin assessment warm/dry. HEAD: Atraumatic. Normocephalic. EYES: Pupils equal and round. No scleral icterus. No injection or drainage. ENT: Mucous membranes pink and moist. Tooth 18 broken, no surrounding swelling of the gums or signs of abscess. CARDIOVASCULAR: Regular rate and rhythm. No murmur appreciated. RESPIRATORY: No accessory muscle use. Clear to auscultation. Breath sounds equal bilaterally. MUSCULOSKELETAL: No obvious deformities. No clubbing. No cyanosis. No edema. NEUROLOGICAL: Awake and alert. No obvious cranial nerve deficits. Motor grossly within normal limits. Normal speech. PSYCHIATRIC: Appropriate mood and affect; insight and judgment normal. Data Data Last Documented VS Vital Signs Date Time Temp Pulse Resp B/P (MAP) Pulse Ox O2 Delivery O2 Flow Rate FiO2 12/03/17 06:12 98.5 97 22 147/82 (103) 96 Orders Orders Ibuprofen (Motrin) (12/03/17 07:15) Clindamycin (Cleocin) (12/03/17 07:15) MDM Medical Decision Making Medical Screen Exam Complete: Yes Emergency Medical Condition: Yes Differential Diagnosis broken tooth vs dental infection vs abscess Narrative Course Patient is a 37 year old female who comes in complaining of pain to her tooth. Exam shows evidence of a broken tooth, no signs of abscess. Given Ibuprofen and Clindamycin. Advised to follow up with a dentist. Advised to return to the ED as needed for any worsening symptoms. Diagnosis Primary Impression: Broken tooth Qualified Codes: S02.5XXA - Fracture of tooth (traumatic), initial encounter for closed fracture Patient Instructions: General Instructions, Toothache (ED) Additional Instructions: Follow up with your dentist. Take all of your antibiotic. Return to the ED as needed for any worsening symptoms. Scripts Clindamycin (Clindamycin) 300 Mg Cap 300 MG PO TID for Infection for 7 Days, CAP 0 Refills Prov: Lin Hardy MD 12/03/17 Disposition: 01 DISCHARGE HOME Condition: Stable Lin Hardy MD Dec 03, 2017 07:32
== END 2017-12-03 07:44 | disposition home or self-care (01) ==
LOC: PHED 06:07
DX: S02.5XXA Fracture of tooth (traumatic), initial encounter for closed fracture (principal); F17.210 Nicotine dependence, cigarettes, uncomplicated
CPT/HCPCS: 99283

== ENCOUNTER 2017-12-05 20:25 | Emergency (ER) | payer MEDICAID ==
[~2017-12-05] VITALS: Ht 167.6 cm; Wt 74.3 kg
[~2017-12-05 20:25] MED LIST changes: -ALBUAER3 INH; -AZIT250T3 PO; +CLIN300C5 PO; -DEXT10SY2 PO; -PRED20 PO
[2017-12-05 20:55] VITALS: BP 118/65; PULSE 84; RESP 16; TEMP 98.2; O2SAT 98
[2017-12-05] MEDS ORDERED: IBUP200C PO (21:23)
[2017-12-05] MEDS ORDERED: IBUP-232 PO (21:45)
[2017-12-05] MEDS ORDERED: AMOX875T PO (21:45)
--- NOTE | 2017-12-05 21:46 | PD ---
HPI Chief Complaint: Oral / Dental Pain or Problem Time Seen by Provider: 21:29 Travel History International Travel<30 days: No Contact w/Intl Traveler<30days: No Traveled to known affect area: No History of Present Illness HPI The patient is a 37-year-old female who complains of a toothache. This is her second visit for the toothache and tooth #17. She is given clindamycin on the but states it is not working and wants something else. She states she is breast-feeding. She has not seen a dentist yet for this tooth but does have a dentist. PFSH Past Medical History Medical History: Denies Significant Hx Diminished Hearing: No Immunizations Current: Yes Tetanus Vaccination: < 5 Years Influenza Vaccination: No ?: Not LMP: 12/03/17 : 12 Para: 4 Miscarriage: 2 : 8 Dilation and Curettage (D&C): Yes (D&C WITH ABORTIONS ) Past Surgical History Appendectomy: Yes Gynecologic Surgery: Yes (D&C) Oral Surgery: Yes Other Surgery: Yes Social History Alcohol Use: No (quit) Tobacco Use: Yes (1-1.5 PPD) Substance Use: Yes (MARIJUANA) Allergies-Medications (Allergen,Severity, Reaction): Coded Allergies: No Known Allergies (Verified Adverse Reaction, Unknown, 12/05/17) Reported Meds & Prescriptions Reported Meds & Active Scripts Active Clindamycin (Clindamycin HCl) 300 Mg Cap 300 Mg PO TID 7 Days Reported Ibuprofen 200 Mg Cap 200 Mg PO Q4H PRN Review of Systems Except as stated in HPI: all other systems reviewed are Neg Physical Exam Narrative GENERAL: Well-nourished, well-developed patient in slight apparent distress with her pain in tooth #17. Her vital signs are normal. SKIN: Focused skin assessment warm/dry. HEAD: Normocephalic. EYES: No scleral icterus. No injection or drainage. NECK: Supple, trachea midline. No JVD or lymphadenopathy. CARDIOVASCULAR: Regular rate and rhythm without murmurs, gallops, or rubs. RESPIRATORY: Breath sounds equal bilaterally. No accessory muscle use. GASTROINTESTINAL: Abdomen soft, non-tender, nondistended. MUSCULOSKELETAL: No cyanosis, or edema. BACK: Nontender without obvious deformity. No CVA tenderness. DENTAL: Tooth #17 has been chipped and the dentin is exposed. No malocclusion. No drainable abscess is seen. Data Data Last Documented VS Vital Signs Date Time Temp Pulse Resp B/P (MAP) Pulse Ox O2 Delivery O2 Flow Rate FiO2 12/05/17 20:55 98.2 84 16 118/65 (82) 98 MDM Medical Decision Making Medical Screen Exam Complete: Yes Emergency Medical Condition: Yes Medical Record Reviewed: Yes Differential Diagnosis Dental infection, drainable abscess, cracked tooth, Narrative Course Tooth #17 has been cracked and a chip has fallen out exposing the dentin. She needs to follow-up with a dentist. She will be given Motrin 600 mg 3 times daily and amoxicillin 875 mg twice daily. It was explained to the patient that antibiotics will not work as well as a typical dental infection because this is exposed dentin and the pain is coming from the exposed portion of the tooth. Diagnosis Primary Impression: Odontalgia Additional Instructions: As we discussed, make sure your education analyst knows that you are taking the Motrin and the amoxicillin. See a dentist as soon as possible because the antibiotics may not work for this type of dental pain. Med/Other Pt SpecificInfo: Prescription(s) given Scripts Ibuprofen (Ibuprofen) 600 Mg Tab 600 MG PO TID, #21 TAB 0 Refills Prov: Jose Roberto Ferguson MD 12/05/17 Amoxicillin (Amoxicillin) 875 Mg Tab 875 MG PO BID for Infection for 10 Days, #20 TAB 0 Refills Prov: Jose Roberto Ferguson MD 12/05/17 Disposition: 01 DISCHARGE HOME Condition: Stable Jose Roberto Ferguson MD Dec 05, 2017 21:46
== END 2017-12-05 21:54 | disposition home or self-care (01) ==
LOC: PHED 20:25 → PHEFT 21:54
DX: K08.89 Other specified disorders of teeth and supporting structures (principal); K03.81 Cracked tooth; F17.200 Nicotine dependence, unspecified, uncomplicated
CPT/HCPCS: 99283

== ENCOUNTER 2018-01-29 02:52 | Emergency (ER) | payer MEDICAID ==
[~2018-01-29] VITALS: Ht 167.6 cm; Wt 77.3 kg
[~2018-01-29 02:52] MED LIST changes: +AMOX875T PO; +IBUP-232 PO; +IBUP200C PO
[2018-01-29 02:56] VITALS: BP 167/95; PULSE 98; RESP 14; TEMP 98.1; O2SAT 97
--- NOTE | 2018-01-29 03:27 | PD ---
HPI Chief Complaint: Oral / Dental Pain or Problem Time Seen by Provider: 03:21 Travel History International Travel<30 days: No Contact w/Intl Traveler<30days: No Traveled to known affect area: No History of Present Illness HPI This is the patient's eighth visit for dental pain since August 2016. She does have a dentist, Dr. Fernandez and her appointment is next Sunday. She complains of severe pain and tooth #18. She has tried ibuprofen and this does not work and Magic mouthwash and this does not work. The patient states she is breast-feeding. She complains of an aching pain of 08/28. He states clindamycin does not work and amoxicillin does not work. PFSH Past Medical History Diminished Hearing: No Immunizations Current: Yes Influenza Vaccination: Yes ?: Not LMP: 01/26/18 : 12 Para: 4 Miscarriage: 2 : 8 Dilation and Curettage (D&C): Yes (D&C WITH ABORTIONS ) Past Surgical History Appendectomy: Yes Gynecologic Surgery: Yes (D&C) Oral Surgery: Yes Other Surgery: Yes Social History Alcohol Use: No (quit) Tobacco Use: Yes (1-1.5 PPD) Substance Use: Yes (MARIJUANA) Allergies-Medications (Allergen,Severity, Reaction): Coded Allergies: No Known Allergies (Verified Adverse Reaction, Unknown, 01/29/18) Reported Meds & Prescriptions Reported Meds & Active Scripts Active Ibuprofen 600 Mg Tab 600 Mg PO TID Amoxicillin 875 Mg Tab 875 Mg PO BID 10 Days Clindamycin (Clindamycin HCl) 300 Mg Cap 300 Mg PO TID 7 Days Reported Ibuprofen 200 Mg Cap 200 Mg PO Q4H PRN Physical Exam Narrative GENERAL: Well-nourished, well-developed patient in moderate to severe distress. She is angry and cursing at me. She states none of the antibiotics were eventually, she settled on clindamycin. Her vital signs show blood pressure 167 /95 but are otherwise normal. SKIN: Focused skin assessment warm/dry. HEAD: Normocephalic. EYES: No scleral icterus. No injection or drainage. NECK: Supple, trachea midline. No JVD or lymphadenopathy. CARDIOVASCULAR: Regular rate and rhythm without murmurs, gallops, or rubs. RESPIRATORY: Breath sounds equal bilaterally. No accessory muscle use. GASTROINTESTINAL: Abdomen soft, non-tender, nondistended. MUSCULOSKELETAL: No cyanosis, or edema. BACK: Nontender without obvious deformity. No CVA tenderness. DENTAL: Tooth #18 is chipped and exquisitely tender. There is no associated drainable dental abscess present. No malocclusion. Data Data Last Documented VS Vital Signs Date Time Temp Pulse Resp B/P (MAP) Pulse Ox O2 Delivery O2 Flow Rate FiO2 01/29/18 03:06 18 01/29/18 02:56 98.1 98 167/95 (119) 97 Orders Orders Bupivacaine Pf 0.5% Inj (Marcaine Pf 0.5 (01/29/18 03:30) MDM Medical Decision Making Medical Screen Exam Complete: Yes Emergency Medical Condition: Yes Medical Record Reviewed: Yes Differential Diagnosis Dental infection, drug-seeking behavior, dental abscess drainable Narrative Course The patient has a dental infection. She has severe pain tonight. She will be given a prescription for clindamycin as well as prescription for penicillin VK. Procedures Procedure Narrative I did a dental block on tooth #18. I used Marcaine and the patient states the pain was gone, that this was amazing. She will be given Percocet 5 for pain, 15 tablets. She needs to keep her dental appointment. Diagnosis Primary Impression: Chronic dental infection Additional Instructions: As we discussed, follow-up with the dentist as soon as you can. The Pen-Vee K is 1 tablet every 6 hours and the clindamycin is 1 tablet 3 times daily. Med/Other Pt SpecificInfo: Prescription(s) given Scripts Clindamycin (Clindamycin) 300 Mg Cap 300 MG PO Q6H for Infection for 10 Days, #40 CAP 0 Refills Prov: Jose Roberto Ferguson MD 01/29/18 Oxycodone-Acetaminophen (Percocet) 5-325 mg Tab 1-2 TAB PO Q4H Y for PAIN, #15 TAB 0 Refills Prov: Jose Roberto Ferguson MD 01/29/18 Penicillin V Potassium (Penicillin V Potassium) 500 Mg Tab 500 MG PO Q6H for Infection, #40 TAB 0 Refills Prov: Jose Roberto Ferguson MD 01/29/18 Jose Roberto Ferguson MD Jan 29, 2018 03:27
[2018-01-29] MEDS ORDERED: BUPIVACAINE HCL PF 0.5% 10 ML VIAL INFIL ONE (03:30)
[2018-01-29] MEDS ORDERED: PENI500T PO (03:35)
[2018-01-29] MEDS ORDERED: PERC5TAB12 PO (03:36)
[2018-01-29] MEDS ORDERED: CLIN300C5 PO (03:47)
[2018-01-29] MEDS ORDERED: CLINDAMYCIN 150 MG CAP PO ONE (04:00)
[2018-01-29] MEDS ORDERED: PENICILLIN V POTASSIUM 500 MG TAB PO ONE (04:00)
[2018-01-29 04:17] VITALS: BP 147/95
== END 2018-01-29 04:18 | disposition home or self-care (01) ==
LOC: PHED 02:52
DX: K04.7 Periapical abscess without sinus (principal); F17.210 Nicotine dependence, cigarettes, uncomplicated; F12.90 Cannabis use, unspecified, uncomplicated
CPT/HCPCS: 64450

== ENCOUNTER 2018-04-24 20:32 | Emergency (ER) | payer MEDICAID ==
[~2018-04-24] VITALS: Ht 167.6 cm; Wt 69.3 kg
[~2018-04-24 20:32] MED LIST changes: +PENI500T PO; +PERC5TAB12 PO
[2018-04-24 20:39] VITALS: BP 122/76; PULSE 92; RESP 18; TEMP 98.3; O2SAT 98
[2018-04-24] MEDS ORDERED: IBUP1TAB7 PO (20:54)
[2018-04-24] MEDS ORDERED: CLIN300C5 PO (20:54)
--- NOTE | 2018-04-24 20:54 | PD ---
HPI Chief Complaint: Oral / Dental Pain or Problem Time Seen by Provider: 20:49 Travel History International Travel<30 days: No Contact w/Intl Traveler<30days: No Traveled to known affect area: No History of Present Illness HPI 38 old female with left lower dental pain and facial swelling 2 days. She believes she has a dental abscess. No fever chills. No difficulty swallowing. Pain is described as constant and aching. No aggravating or alleviating factors. PFSH Past Medical History Medical History: Denies Significant Hx Diminished Hearing: No Immunizations Current: Yes ?: Unknown LMP: 04/19/18 : 12 Para: 4 Miscarriage: 2 : 8 Dilation and Curettage (D&C): Yes (D&C WITH ABORTIONS ) Past Surgical History Appendectomy: Yes Gynecologic Surgery: Yes (D&C) Oral Surgery: Yes Other Surgery: Yes Social History Alcohol Use: No (quit) Tobacco Use: Yes (1-1.5 PPD) Substance Use: Yes (MARIJUANA) Allergies-Medications (Allergen,Severity, Reaction): Coded Allergies: No Known Allergies (Verified Adverse Reaction, Unknown, 04/24/18) Reported Meds & Prescriptions Reported Meds & Active Scripts Active Clindamycin (Clindamycin HCl) 300 Mg Cap 300 Mg PO Q6H 10 Days Percocet (Oxycodone-Acetaminophen) 5-325 mg Tab 1-2 Tab PO Q4H PRN Penicillin V Potassium 500 Mg Tab 500 Mg PO Q6H Ibuprofen 600 Mg Tab 600 Mg PO TID Amoxicillin 875 Mg Tab 875 Mg PO BID 10 Days Clindamycin (Clindamycin HCl) 300 Mg Cap 300 Mg PO TID 7 Days Reported Ibuprofen 200 Mg Cap 200 Mg PO Q4H PRN Review of Systems Except as stated in HPI: all other systems reviewed are Neg General / Constitutional: No: Fever HENT: Positive: Dental Difficulties Physical Exam Narrative GENERAL: Alert and well-appearing 38-year-old female SKIN: Warm and dry. HEAD: Normocephalic. EYES: No injection or drainage. ENT: Gum erythema and swelling around tooth #20 which is fractured and decayed. No swelling to the floor the mouth. Uvula is midline. Airways patent.. NECK: Supple, trachea midline. No lymphadenopathy. CARDIOVASCULAR: Regular rate and rhythm without murmurs, gallops, or rubs. RESPIRATORY: Breath sounds equal bilaterally. No accessory muscle use. Data Data Last Documented VS Vital Signs Date Time Temp Pulse Resp B/P (MAP) Pulse Ox O2 Delivery O2 Flow Rate FiO2 04/24/18 20:39 98.3 92 18 122/76 (91) 98 MDM Medical Decision Making Medical Screen Exam Complete: Yes Emergency Medical Condition: Yes Differential Diagnosis Dental abscess, periodontal disease, dental caries Narrative Course 38-year-old female here with dental abscess. She will be treated with Augmentin and ibuprofen. Instructed to follow-up with the dentist. Diagnosis Primary Impression: Dental abscess Referrals: Dentist Additional Instructions: Medication as directed. Follow-up with her dentist. Scripts Ibuprofen (Ibuprofen) 800 Mg Tab 800 MG PO Q6HR Y for PAIN, #40 TAB 0 Refills Prov: Barbie Vee 04/24/18 Clindamycin (Clindamycin) 300 Mg Cap 300 MG PO Q6H for Infection for 10 Days, #40 CAP 0 Refills Prov: Barbie Vee 04/24/18 Disposition: 01 DISCHARGE HOME Condition: Stable Barbie Vee Apr 24, 2018 20:54
== END 2018-04-24 21:14 | disposition home or self-care (01) ==
LOC: PHEFT 20:32
DX: K04.7 Periapical abscess without sinus (principal); F17.200 Nicotine dependence, unspecified, uncomplicated; F12.90 Cannabis use, unspecified, uncomplicated
CPT/HCPCS: 99283

== ENCOUNTER 2018-05-03 15:51 | Emergency (ER) | payer MEDICAID ==
[2018-05-03 15:51] VITALS: BP 149/68; PULSE 127; RESP 20; TEMP 99.2; O2SAT 100
[~2018-05-03 15:51] MED LIST changes: +IBUP1TAB7 PO
[2018-05-03] MEDS ORDERED: diphenhydrAMINE HCL 50 MG/ML VIAL IV PUSH ONE (16:15)
[2018-05-03] MEDS ORDERED: VANCOMYCIN INJ 1,000 MG in SODIUM CHLOR 0.9% 250 ML INJ 250 ML IV ONE (16:15)
[2018-05-03] MEDS ORDERED: KETOROLAC TROMETHAMINE 30 MG/ML (IVP) VIAL IV PUSH ONE (16:15)
[2018-05-03] MEDS ORDERED: TRAM50 PO (16:28)
[2018-05-03] MEDS ORDERED: MOBI15TA PO (16:28)
[2018-05-03] MEDS ORDERED: DOXY100C PO (16:28)
[2018-05-03] MEDS ORDERED: BACT800T5 PO (16:28)
--- NOTE | 2018-05-03 16:28 | PD ---
HPI Chief Complaint: Skin Problem Time Seen by Provider: 16:07 Travel History International Travel<30 days: No Contact w/Intl Traveler<30days: No Traveled to known affect area: No History of Present Illness HPI 38-year-old female complains of pain and swelling left buttock. Patient states that symptoms started 3 days ago. Patient states the pain is sharp severe pain localized to left buttock. Patient denies any pain radiation. Patient denies any fever chills. Patient denies any coughing congestion. Patient denies injury to the buttock. Patient was seen in emergency room 9 days ago for dental pain. Patient was given prescription for ibuprofen and clindamycin. Patient states that she has been taking clindamycin as directed. Patient states that she has intermittent nausea vomiting. Patient denies abdominal pain. Patient denies any fever chills. On a scale of 1-10 the pain is a 10. PFSH Past Medical History Diminished Hearing: No Immunizations Current: Yes ?: Not LMP: 1 MONTH : 12 Para: 4 Miscarriage: 2 : 8 Dilation and Curettage (D&C): Yes (D&C WITH ABORTIONS ) Past Surgical History Appendectomy: Yes Gynecologic Surgery: Yes (D&C) Oral Surgery: Yes Other Surgery: Yes Social History Alcohol Use: No (quit) Tobacco Use: Yes (1-1.5 PPD) Substance Use: Yes (MARIJUANA) Allergies-Medications (Allergen,Severity, Reaction): Coded Allergies: No Known Allergies (Verified Adverse Reaction, Unknown, 05/03/18) Reported Meds & Prescriptions Reported Meds & Active Scripts Active Ibuprofen 800 Mg Tab 800 Mg PO Q6HR PRN Clindamycin (Clindamycin HCl) 300 Mg Cap 300 Mg PO Q6H 10 Days Clindamycin (Clindamycin HCl) 300 Mg Cap 300 Mg PO Q6H 10 Days Percocet (Oxycodone-Acetaminophen) 5-325 mg Tab 1-2 Tab PO Q4H PRN Penicillin V Potassium 500 Mg Tab 500 Mg PO Q6H Ibuprofen 600 Mg Tab 600 Mg PO TID Amoxicillin 875 Mg Tab 875 Mg PO BID 10 Days Clindamycin (Clindamycin HCl) 300 Mg Cap 300 Mg PO TID 7 Days Reported Ibuprofen 200 Mg Cap 200 Mg PO Q4H PRN Review of Systems General / Constitutional: No: Fever Eyes: No: Visual changes HENT: No: Headaches Cardiovascular: No: Chest Pain or Discomfort Respiratory: No: Shortness of Breath Gastrointestinal: No: Abdominal Pain Genitourinary: No: Dysuria Musculoskeletal: No: Pain Skin: No Rash Neurologic: No: Weakness Psychiatric: No: Depression Endocrine: No: Polydipsia Hematologic/Lymphatic: No: Easy Bruising Physical Exam Narrative GENERAL: Well-nourished, well-developed patient. SKIN: Focused skin assessment warm/dry. HEAD: Normocephalic. EYES: No scleral icterus. No injection or drainage. NECK: Supple, trachea midline. No JVD or lymphadenopathy. CARDIOVASCULAR: Regular rate and rhythm without murmurs, gallops, or rubs. RESPIRATORY: Breath sounds equal bilaterally. No accessory muscle use. GASTROINTESTINAL: Abdomen soft, non-tender, nondistended. MUSCULOSKELETAL: No cyanosis, or edema. BACK: Nontender without obvious deformity. No CVA tenderness. Patient has an area of redness swelling tenderness left buttock area. No induration. No discharge. Data Data Last Documented VS Vital Signs Date Time Temp Pulse Resp B/P (MAP) Pulse Ox O2 Delivery O2 Flow Rate FiO2 05/03/18 15:51 99.2 127 20 149/68 (95) 100 Orders Orders Vancomycin Inj (Vancomycin Inj) (05/03/18 16:15) Ketorolac Inj (Toradol Inj) (05/03/18 16:15) Diphenhydramine Inj (Benadryl Inj) (05/03/18 16:15) Doxycycline (Vibratab) (05/03/18 16:30) MDM Medical Decision Making Medical Screen Exam Complete: Yes Emergency Medical Condition: Yes Differential Diagnosis Differential diagnosis including cellulitis, abscess. Narrative Course 38-year-old female with pain swelling redness left buttock. Patient just finished clindamycin for dental pain. Vancomycin 1 g IV given. Toradol 30 mg IV. Benadryl 25 mg IV. Zofran 4 mg ODT. Diagnosis Primary Impression: Cellulitis of buttock Patient Instructions: General Instructions Additional Instructions: Bactrim DS and doxycycline as directed. Ultram and Mobic as needed for pain. Return in 2 days for recheck. Advised warm moist compress to the buttock. Med/Other Pt SpecificInfo: Prescription(s) given Scripts Tramadol (Ultram) 50 Mg Tab 50 MG PO Q6H Y for PAIN, #12 TAB 0 Refills Prov: David Larsen MD 05/03/18 Meloxicam (Mobic) 15 Mg Tab 15 MG PO DAILY for Pain, #20 TAB 0 Refills Prov: David Larsen MD 05/03/18 Doxycycline Hyclate (Doxycycline Hyclate) 100 Mg Cap 100 MG PO BID for Infection, #20 CAP 0 Refills Prov: David Larsen MD 05/03/18 Sulfamethoxazole-Trimethoprim (Bactrim DS) 800-160 Mg Tab 1 TAB PO BID for Infection, #20 TAB 0 Refills Prov: David Larsen MD 05/03/18 Disposition: 01 DISCHARGE HOME Condition: Stable David Larsen MD May 03, 2018 16:28
[2018-05-03] MEDS ORDERED: ONDANSETRON ODT 4 MG TAB PO ONE (16:30)
[2018-05-03] MEDS ORDERED: DOXYCYCLINE HYCLATE 100 MG TAB PO ONE (16:30)
== END 2018-05-03 18:28 | disposition home or self-care (01) ==
LOC: PHED 15:51
DX: L03.317 Cellulitis of buttock (principal); R11.2 Nausea with vomiting, unspecified; F17.200 Nicotine dependence, unspecified, uncomplicated; F12.90 Cannabis use, unspecified, uncomplicated
CPT/HCPCS: 96365; 96375; 99284; J1200; J1885; J3370; J7050